=== PATIENT | female | born 1965 | race Caucasian/White ===

== ENCOUNTER → 2017-04-03 | Outpatient (CLI) | payer BC ==
[~2017-04-03] MED LIST: CHLO0.12 MT; CLC150 PO; LISI-461 PO; PRCUNK PO; PRLSR20 PO; SALI0.6517
--- NOTE | 2017-04-03 16:20 | MAMMOGRAPHY REPORT ---
BILATERAL DIGITAL SCREENING MAMMOGRAM TOMOSYNTHESIS WITH CAD: 04/03/2017 CLINICAL HISTORY: Routine screening. Patient has no complaints. TECHNIQUE: Breast tomosynthesis in addition to standard 2D mammography was performed. Current study was also evaluated with a Computer Aided Detection (CAD) system. COMPARISON: Comparison is made to exams dated: 03/29/2016 mammogram, 03/28/2015 mammogram, 03/14/2014 ma mmogram, 03/08/2013 mammogram, and 02/05/2012 mammogram - [facility]. BREAST COMPOSITION: There are scattered areas of fibroglandular density in both breasts. FINDINGS: No suspicious masses, calcifications, or areas of architectural distortion are noted in ei ther breast. There has been no significant interval change compared to prior exams. Small circumscri bed benign-appearing masses are again noted, most prominent within the right upper outer quadrant, li taey representing cysts. Scattered bilateral benign-appearing calcifications are again noted. IMPRESSION: ACR BI-RADS CATEGORY 2: BENIGN There is no mammographic evidence of malignancy. A 1 year screening mammogram is recommended. The pa tient will receive written notification of the results. Approximately 10% of breast cancers are not detected with mammography. A negative mammographic report should not delay biopsy if a clinically suggestive mass is present. Julianne Childers M.D. ah/:04/03/2017 13:58:36 Mail Sorting Supervisor: Savana DECKER(Eriberto)(M), [facility] letter sent: Normal 1/2 BI-RADS Code: ACR BI-RADS Category 2: Benign
== END | disposition home or self-care (01) ==
LOC: C.MAMM 10:57
PROVIDERS: ATTEND Family Medicine
DX: Z12.31 Encounter for screening mammogram for malignant neoplasm of breast (principal)

== ENCOUNTER → 2017-05-14 | Outpatient (CLI) | payer BC ==
[2017-05-14 13:32] LABS: BASO % 0.4 %; BASO ABS # 0.03 K/uL (0-0.2); COMPLETE YES; EOS % 2.3 %; HEMATOCRIT 44.1 % (37-47); IG% 0.2 %; LYMPH % 22.5 %; LYMPH ABS # 1.93 K/uL (1.2-3.4); MEAN CELL VOLUME 83.8 fL (80-100); MEAN CORPUSCULAR HEMOGLOBIN 27.4 pg (25-34); MEAN CORPUSCULAR HGB CONC 32.7 g/dl (32-36); MEAN PLATELET VOLUME 9.2 fL (7.4-10.4); MONO % 6.1 %; NEUT % 68.5 %; PLATELET COUNT 270 K/uL (130-400); RED BLOOD COUNT 5.26 M/uL (4.2-5.4); WHITE BLOOD COUNT 8.56 K/uL (4.8-10.8)
[2017-05-14 13:42] LABS: ALT/SGPT 30 U/L (12-78); BLOOD UREA NITROGEN 15 mg/dl (7-18); CARBON DIOXIDE 30 mmol/L (21-32); CHLORIDE 107 mmol/L (98-107); CHOLESTEROL 204 mg/dl (0-200); CREATININE 0.94 mg/dl (0.60-1.20); GLUCOSE 93 mg/dl (70-99); SODIUM 141 mmol/L (136-145); TRIGLYCERIDES 128 mg/dl (0-150); VERY LOW DENSITY LIPOPROT CALC 26 mg/dl
[2017-05-14 13:45] LABS: ALKALINE PHOSPHATASE 107 U/L (45-117); AST/SGOT 21 U/L (15-37); CHOLESTEROL/HDL RATIO 3.9; HDL CHOLESTEROL 52 mg/dl; LDL CHOLESTEROL CALCULATED 126 mg/dl
== END | disposition home or self-care (01) ==
LOC: C.LABMFLN 09:00
PROVIDERS: ATTEND Family Medicine
DX: I10 Essential (primary) hypertension (principal); E78.5 Hyperlipidemia, unspecified

== ENCOUNTER → 2018-04-15 | Outpatient (CLI) | payer BC ==
--- NOTE | 2018-04-16 08:11 | MAMMOGRAPHY REPORT ---
ULTRASOUND OF RIGHT BREAST: 04/15/2018 CLINICAL HISTORY: 52-year-old woman callback from screening mammography for right breast masses seen in the upper outer quadrant. Patient has a history of prior right breast surgery that she reports yie lded benign pathology results. Prior attempted needle localization for a nodule in the right upper ou ter breast in 2009 which was unsuccessful. COMPARISON: Comparison is made to exams dated: 04/06/2018 mammogram, 04/03/2017 mammogram, 03/29/2016 mamm ogram, 03/28/2015 mammogram, 03/17/2014 ultrasound, and 03/17/2014 mammogram - [facility]. FINDINGS: Real-time high resolution sonographic evaluation was performed throughout the right upper o uter quadrant to assess for the mammographic masses. There is a subtle ill-defined isoechoic to slig htly hypoechoic mass and a second adjacent mass in the 10:00 right breast, 13 cm from the nipple. Th e non-circumscribed and somewhat indistinct bordered mass measures 6.2 x 5.8 x 7.0 mm, but both basilia s in conglomerate measure 1.5 cm. Further characterization with ultrasound-guided core needle biopsy is recommended. These are thought to correlate with the 2 adjacent mammographic masses in the upper outer far posterior right breast. A second subtle isoechoic mass versus fat lobule which is partially circumscribed in the 10:00 right breast, 9 cm from the nipple measures 6.6 x 4.3 x 4.5 mm. This is thought to correspond with the derek mographic mass in the upper outer middle one third of the right breast. Ultrasound-guided core needl e biopsy is recommended. A third solid-appearing mass was identified in the right 10:00 axis, 2 cm f rom the nipple, measuring 5.6 x 4.4 x 4.1 mm, which is also indeterminate and ultrasound-guided core biopsy is again recommended. IMPRESSION: ACR BI-RADS CATEGORY 4: SUSPICIOUS 1. Ultrasound-guided core needle biopsy 3 is recommended in the right breast. First, for 2 adjacent subtly hypoechoic non-circumscribed masses in the 10:00 right breast, 13 cm from the nipple, thought to correlate with the 2 adjacent mammographic masses in the upper outer far posterior right breast. Second, for an isoechoic mass in the 10:00 right breast, 9 cm from the nipple thought to correlate w ith the mass in the upper outer middle one third of the right breast. Third, for an incidentally rupal ntified 5.6 mm solid mass in the 10:00 axis, 2 cm from the nipple. These results and recommendations were discussed with the patient at the time of the exam. She tenta tively scheduled the right breast biopsies prior to leaving our department. Kim Pulido M.D. ay/:04/15/2018 12:23:31 Ice Cream Server: Kim Pulido, [facility] letter sent: Abnormal 4/5 BI-RADS Code: ACR BI-RADS Category 4: Suspicious
== END | disposition home or self-care (01) ==
LOC: C.MAMM 11:10
PROVIDERS: ATTEND Family Medicine
DX: N63.11 Unspecified lump in the right breast, upper outer quadrant (principal)

== ENCOUNTER → 2018-04-27 | Outpatient (CLI) | payer BC ==
--- NOTE | 2018-04-27 13:41 | Discharge Instructions ---
Discharge Instructions Procedure Procedure Date: Apr 27, 2018. Reason for visit: Right Masses. Discharge Discharge Date: Apr 27, 2018. Discharge Diagnosis: post right breast ultrasound guided core biopsy x 3 Instructions Activity Recommendations: Additional Limitations (see below) Return to School/Work: no limitations Recommended Home Diet: No Limitations Provider Instructions: ACTIVITY RECOMMENDATIONS: * No lifting, pushing, pulling or exercising the affected side for three days. RETURN TO SCHOOL/WORK: * You may return to work/school after the procedure, but do not perform any strenuous activities for 24 to 48 hours. MEDICATIONS: * Tylenol (two 325 mg) every four to six hours if needed for mild pain (if not allergic to Tylenol). DIET: * Resume previous diet. SPECIAL CARE INSTRUCTIONS: * Keep biopsy site dry for 24 hours. May shower after 24 hours, but do not soak (bathe) incision. May remove Tegaderm (plastic patch) 24 hours after procedure * Leave the steri-strips on for one week. Allow the steri-strips to fall off by themselves. If not off after one week, you may remove them. You may place a Bandaid crosswise over the strips, if desired. * Apply ice 10 minutes on and 10 minutes off as needed. * Wear a bra at bedtime to sleep more comfortably for 2-3 days. * Your referring physician should have the results after approximately 5 to 7 business days. * Call for unusual bleeding, fever, drainage, etc or if you have any questions call [phone] during normal business hours or after hours call Dr Pulido, . FOLLOW UP VISIT: Follow-up with Referring Physician as scheduled. Allergies Coded Allergies: Erythromycin (Verified Allergy, Unknown, UNKNOWN, 02/23/10) Penicillins (Verified Allergy, Unknown, UNKNOWN, 02/23/10) Yvonne Sanders Recommendations: Call your doctor if: * Temperature above 101 degrees * Pain not relieved by pain medicine ordered * There is increased drainage or redness from any incision * You have any unanswered questions or concerns. Your Doctors Instructions noted above were prepared by provider Kim Pulido. Patient Signature Section: Patient Instructions Signature Page Rossy Pace Patient (or Guardian) Signature/Date: I have read and understand the instructions given to me by my caregivers. Caregiver/RN/Doctor Signature/Date: The above-named patient and/or guardian has received patient instructions on this date. + Original Patient Signature Page (only) stays with chart. Please make copy for patient.
--- NOTE | 2018-04-27 15:40 | MAMMOGRAPHY REPORT ---
ULTRASOUND GUIDED BIOPSY RIGHT BREAST: 04/27/2018 CLINICAL HISTORY: 52-year-old woman presents for ultrasound-guided core biopsy 3 in the right breast 10:00 axis. First for a 5.6 mm isoechoic solid-appearing mass in the 10:00 axis, 2 cm from the nippl e, second for a subtle isoechoic 6.6 mm mass in the 10:00 axis, 9 cm from the nipple, and a third for a mass versus 2 adjacent masses measuring 15.2 mm in the 10:00 axis, 13 cm from the nipple. COMPARISON: Comparison is made to exams dated: 04/15/2018 ultrasound and 04/06/2018 mammogram, prior sc reening mammograms dated 04/03/2017, 03/29/2016, 03/28/2015, 03/14/2014, 03/08/2013, 02/05/2012, 10/12/2010, [facility]. PATIENT CONSENT: The procedure, risks and benefits were discussed with the patient and informed conse nt was obtained both verbally and in writing. Specific risks to this procedure include: bleeding, in fection, puncture of adjacent structure, nontarget biopsy, sampling error, pain, metal allergy and me dication reaction. PROCEDURE DESCRIPTION: A time out was performed and the right breast was agreed as the site of biopsy . Prior to biopsy, repeat targeted ultrasound was performed in the 10:00 axis of the right breast. Eac h previously described mass was identified and the skin was marked in the area for targeting purposes during the biopsy. The skin of the right breast was prepped and draped in the usual sterile fashion . First, solid 5.6 mm mass in the 10:00 right breast, 2 cm from the nipple was chosen as the target for biopsy. Subcutaneous and intraparenchymal 1% buffered lidocaine, with and without epinephrine, wa s administered as local anesthesia. A skin incision was made. Through the incision, 3 samples were t aken with a 14 gauge Achieve biopsy device. A ribbon shaped metallic marker was placed at the biopsy site. Hemostasis was achieved after manual compression. The patient tolerated the procedure well and there was no immediate complication. Second, the subtle isoechoic solid-appearing 6.6 mm mass in the 10:00 right breast, 9 cm from the nip ple was identified and targeted for biopsy. Additional 1% buffered lidocaine with and without epinep hrine was administered as local anesthesia. A small skin incision was made. Through the incision, 4 core biopsy samples were obtained with a 14-gauge Achieve biopsy device. A wing-shaped metallic bio psy marker clip was placed at this site. Hemostasis was achieved after manual compression. The rubens ent tolerated the procedure well and there was no immediate complication. Third, the mass versus 2 adjacent masses measuring 15 mm, located in the deep 10:00 axis, 13 cm from the nipple was identified and targeted for biopsy. Additional 1% buffered lidocaine with and without epinephrine was administered as local anesthesia. In total, 5 cc of 1% lidocaine without epinephrin e and 5 cc of lidocaine 1% with epinephrine were administered for the biopsies performed today. A sm all skin incision was made. Through the incision, 6 core biopsy samples were obtained with a 14-gaug e Achieve biopsy device. A "coiled" or "padlock shaped" metallic biopsy marker clip was placed at th e site of biopsy. The patient tolerated the procedure well and there was no immediate complication. Hemostasis was achieved after several minutes of manual compression. All of the core biopsy samples were sent to the pathology department in an appropriately labeled cont ainers. Postprocedure right CC and ML tomosynthesis images were obtained. 3 new metallic biopsy marker is id entified in the right breast, without evidence of significant postbiopsy hematoma's. The ribbon-shap ed clip aligns with a focal asymmetry in the upper outer anterior right breast. The wing-shaped clip aligns with the focal asymmetry in question in the upper outer middle one third of the breast, and t he coiled or lock-shaped clip aligns with the mass versus 2 adjacent non-circumscribed masses in the upper outer posterior right breast. It should be noted that the third lock-shaped clip displaced ant eriorly from the site of biopsy by 2.2 cm, thought to have migrated along the biopsy tract after plac ement, during removal of the deployment cannula. IMPRESSION: ULTRASOUND GUIDED BIOPSY 1. Status post right breast ultrasound-guided core biopsy 3 in the 10:00 axis. Biopsy marker clips do align with the mammographic asymmetry/masses in question in the upper outer middle and posterior a spect of the right breast. 2. It should be noted that the coiled or padlock-shaped biopsy marker clip placed in the 10:00 axis, 13 cm from the nipple appears to have migrated out of the biopsy tract by 2.2 cm after deployment. The patient will receive notification of the pathology results from her referring physician. Kim Pulido M.D. ay/:04/27/2018 14:26:04 Optical Fabrication Technician: RT Cy(R)(M), [facility]
--- NOTE | 2018-04-27 15:40 | MAMMOGRAPHY REPORT ---
MULTIPLE ULTRASOUND GUIDED BIOPSIES RIGHT BREAST: 04/27/2018 CLINICAL HISTORY: 52-year-old woman presents for ultrasound-guided core biopsy 3 in the right 10:00 breast. She has a history of prior right breast biopsy and surgery, which reportedly yielded benign r esults. Please refer the report from right breast ultrasound-guided core biopsy performed at the same time fo r full detail. IMPRESSION: ULTRASOUND GUIDED BIOPSY Please refer the report from right breast ultrasound-guided core biopsy performed at the same time fo r full detail. Kim Pulido M.D. ay/:04/27/2018 13:46:51 Plasma Table Operator: RT Cy(R)(M), [facility]
--- NOTE | 2018-04-27 15:40 | MAMMOGRAPHY REPORT ---
ULTRASOUND GUIDED BIOPSY RIGHT BREAST: 04/27/2018 CLINICAL HISTORY: 52-year-old woman presents for ultrasound-guided core biopsy 3 in the right breast for indeterminate solid appearing masses located 2 cm, 9 cm and 13 cm from the nipple. Please refer to the report from right breast ultrasound-guided core biopsy performed at the same time for full detail. IMPRESSION: ULTRASOUND GUIDED BIOPSY Please refer to the report from right breast ultrasound-guided core biopsy performed at the same time for full detail. Kim Pulido M.D. ay/:04/27/2018 14:13:22 Forming Department End Finder: RT Cy(Eriberto)(M), [facility]
--- NOTE | 2018-04-27 15:43 | MAMMOGRAPHY REPORT ---
UNILATERAL RIGHT DIGITAL DIAGNOSTIC MAMMOGRAM TOMOSYNTHESIS: 04/27/2018 CLINICAL HISTORY: 52-year-old woman presents for biopsy of 3 solid-appearing masses in the right 10:0 0 breast located 2 cm, 9 cm and 13 cm from the nipple. Please refer to the report from right breast ultrasound-guided core biopsy performed at the same time for full detail. IMPRESSION: POST PROCEDURE IMAGING FOR MARKER PLACEMENT Please refer to the report from right breast ultrasound-guided core biopsy performed at the same time for full detail. Some breast cancers are not detected with mammography. A negative mammographic report should not jethro y biopsy if a clinically suggestive mass is present. Kim Pulido M.D. ay/:04/27/2018 14:12:36 Lamp Shade Assembler: ASIA Verde)(M), [facility] BI-RADS Code: Post Procedure Imaging For Marker Placement
== END | disposition home or self-care (01) ==
LOC: C.MAMM 12:07
PROVIDERS: ATTEND Family Medicine
DX: N63.10 Unspecified lump in the right breast, unspecified quadrant (principal); D24.1 Benign neoplasm of right breast

== ENCOUNTER → 2018-05-21 | Outpatient (CLI) | payer BC ==
[~2018-05-21] MED LIST changes: -CHLO0.12 MT; -CLC150 PO; +HYDR-5688 PO; -LISI-461 PO; -PRCUNK PO; -PRLSR20 PO; -SALI0.6517
== END | disposition home or self-care (01) ==
LOC: C.LABMFLN 07:29
PROVIDERS: ATTEND Family Medicine
DX: Z13.1 Encounter for screening for diabetes mellitus (principal); Z13.220 Encounter for screening for lipoid disorders